=== PATIENT | male | born 1965 | race Caucasian/White ===

== ENCOUNTER 2019-07-28 09:07 | Outpatient (CLI) | payer OTHER ==
[~2019-07-28 09:07] MED LIST: ALBUTEROL NEB 2.5 MG/3 ML INH SCH
== END 2019-07-28 09:08 | disposition home or self-care (01) ==
LOC: RT 09:07
PROVIDERS: ATTEND Family Medicine
DX: J98.6 Disorders of diaphragm (principal)
CPT/HCPCS: 94060; 94727

== ENCOUNTER 2024-05-29 09:45 | Day surgery (SDC) | payer OTHER ==
[2024-05-29] MEDS: LACTATED RINGERS 1,000 ML IV ONE (09:55)
[2024-05-29] MEDS ORDERED: PROPOFOL 500 MG/50 ML 500 MG/50 ML VIAL ONE (10:43)
--- NOTE | 2024-05-29 11:02 | ANESTHESIA ---
Pre-Anesthesia VS, & Labs - Diagnosis ROUTINE SCREENING - Procedure COLONOSCOPY Vital Signs: Temp Pulse Resp BP Pulse Ox O2 Flow Rate 36.1 C L 83 14 138/83 H 94 05/29/24 09:58 05/29/24 09:58 05/29/24 09:58 05/29/24 09:58 05/29/24 09:58 Height: 6 ft 1 in Weight (kg): 105 kg Body Mass Index: 30.5 BMI Classification: Obese - NPO >8 hours (BOWEL PREP COMPLETED) Home Medications and Allergies Ibuprofen [Motrin] 400 mg PO Q6HR PRN 11/27/16 Allergies/Adverse Reactions: Allergies Allergy/AdvReac Type Severity Reaction Status Date / Time No Known Drug Allergies Allergy Verified 11/27/16 05:17 Anes History & Medical History - Anesthetic History Anesthesia Complications: reports: No previous complications Family history of Anesthesia Complications: Denies Family history of Malignant Hyperthermia: Denies - Medical History Cardiovascular: reports: None Pulmonary: reports: Shortness of breath (2020 had surgery to pin diaphragm down; now has some SOB with exertion), Sleep apnea, CPAP use, Other Gastrointestinal: reports: None Urinary: reports: None Neuro: reports: None Musculoskeletal: reports: None Endocrine/Autoimmune: reports: None Blood Disorders: reports: None Skin: reports: None Smoking Status: Former smoker (quit 30 years ago) Psychosocial: reports: Alcohol (6-12 drinks over a week) History of Cancer?: No - Surgical History General: reports: Other Orthopedic: reports: Other Results - EKG Results EKG Comparison: Reviewed EKG, Normal EKG Exam General: Alert, Oriented x3, Cooperative, No acute distress Dental: Poor dentition, Other (loose teeth lower front left) Mouth Openin Fingerbreadth Mallampati classification: III Thyromental Distance: less than 4 cm Respiratory: Lungs clear, Normal breath sounds, No respiratory distress, No accessory muscle use Cardiovascular: Regular rate, Normal S1, Normal S2, No murmurs Mental/Cognitive Status: Alert/Oriented X3, Normal for patient Cognitive Status: Within normal limits Plan Anesthesia Type: General Consent for Procedure(s) Verified and Reviewed: Yes Code Status: Attempt Resuscitation ASA classification: 2-Mild systemic disease Is this case an emergency?: No
[2024-05-29] MEDS ORDERED: LIDOCAINE-MPF 2% 5 ML VIAL ONE (11:10)
--- NOTE | 2024-05-29 11:21 | HISTORY & PHYSICAL EXAMINATION ---
Chief Complaint - Chief Complaint Chief Complaint: here for colonoscopy History of Present Illness - History Obtained From Records Reviewed: yes History obtained from: pt Exam Limitations: none - History of Present Illness HPI Comment/Other: here for colonoscopy for screening. no gi symptoms or fhx colon ca. cologuard 3 years ago negative. History - Past Medical History Cardiovascular: reports: None Respiratory: reports: Shortness of breath (2020 had surgery to pin diaphragm down; now has some SOB with exertion), Sleep apnea, CPAP use, Other Neuro: reports: None Endocrine/Autoimmune: reports: None GI: reports: None : reports: None HEENT: reports: Chronic vision loss, Other Psych: reports: None Musculoskeletal: reports: None Derm: reports: None MRSA Hx?: No - Past Surgical History General: reports: Other Ortho: reports: Other - POLST Patient has POLST: No Meds/Allgy - Home Medications Home Medications: Ambulatory Orders Medication Instructions Recorded Confirmed Albuterol Sulf [Ventolin Hfa 2 puffs INH Q4HR PRN #1 inhaler 11/27/16 Inhaler] Ibuprofen [Motrin] 400 mg PO Q6HR PRN 11/27/16 11/27/16 - Allergies Allergies/Adverse Reactions: Allergies Allergy/AdvReac Type Severity Reaction Status Date / Time No Known Drug Allergies Allergy Verified 11/27/16 05:17 Review of Systems - Other Findings Other Findings: 10 pt ros as above otherwise unremarkable Exam - Vital Signs Vital Signs: Vital Signs x48h Temp Pulse Resp BP Pulse Ox 05/29/24 09:58 36.1 C L 83 14 138/83 H 94 - Physical Exam General Appearance: positive: No acute distress, Alert Eyes Bilateral: positive: PERRL, EOMI ENT: positive: No signs of dehydration Neck: positive: No JVD, Trachea midline Respiratory: positive: No respiratory distress Cardiovascular: positive: Regular rate & rhythm Neurologic/Psychiatric: positive: Oriented x3 Conclusion/Plan - Problem List (1) Colon cancer screening Conclusion/Plan: plan colonoscopy. parq held and consent obtained
[2024-05-29] MEDS: LACTATED RINGERS 500 ML IV ONE (12:05)
[2024-05-29 12:13] VITALS: BP 132/94
[2024-05-29 12:23] VITALS: O2SAT 96
--- NOTE | 2024-05-29 15:06 | ANESTHESIA POST OP EVALUATION ---
Anesthesia Post Eval - Post Anesthesia Eval Vitals: Last Vital Signs Temp 36.6 C 05/29/24 12:21 Pulse 85 05/29/24 12:21 Resp 15 05/29/24 12:21 BP 132/94 H 05/29/24 12:21 Pulse Ox 96 05/29/24 12:21 O2 Flow Rate CV Function Including HR & BP: Stable Pain Control: Satisfactory Nausea & Vomiting: Negative Mental Status: Baseline Respiratory Status: Airway Patent Hydration Status: Satisfactory Anesthesia Complications: None
== END 2024-05-29 09:46 | disposition home or self-care (01) ==
LOC: SDS 09:45
PROVIDERS: ATTEND Surgery
PROC: 0DBL8ZZ Excision of Transverse Colon, Via Natural or Artificial Opening Endoscopic (ICD-10-PCS; 2024-05-29)
PROC: 0DBK8ZZ Excision of Ascending Colon, Via Natural or Artificial Opening Endoscopic (ICD-10-PCS; principal; 2024-05-29 11:00)
DX: Z12.11 Encounter for screening for malignant neoplasm of colon (principal); D12.3 Benign neoplasm of transverse colon; D12.2 Benign neoplasm of ascending colon; K57.30 Diverticulosis of large intestine without perforation or abscess without bleeding; E66.9 Obesity, unspecified; Z68.30 Body mass index [BMI] 30.0-30.9, adult; G47.30 Sleep apnea, unspecified; Z87.891 Personal history of nicotine dependence
CPT/HCPCS: 45380; J7120